=== PATIENT | male | born 1960 | race Caucasian/White ===

== ENCOUNTER → 2018-08-02 | Outpatient (CLI) | payer MEDICARE, OTHER ==
--- NOTE | 2018-08-02 17:02 | Diagnostic Imaging Report ---
INDICATION: Left shoulder pain, history of rotator cuff surgery. TECHNIQUE: AP, oblique, and transscapular views of the left shoulder were obtained. FINDINGS: No fracture or acute bony abnormality is seen. Benign-appearing lucency of the humeral head is probably a herniation pit. The glenohumeral joint and AC joint appear grossly unremarkable. IMPRESSION: No acute abnormality of the left shoulder. Dictated by: Dictated on workstation # [id number]
== END ==
LOC: RAD FS 13:40
PROVIDERS: ATTEND Nurse Practitioner
DX: M25.512 Pain in left shoulder (principal); Z98.890 Other specified postprocedural states
CPT/HCPCS: 73030

== ENCOUNTER → 2018-08-09 | Outpatient (CLI) | payer MEDICARE, OTHER ==
--- NOTE | 2018-08-09 22:57 | Diagnostic Imaging Report ---
PROCEDURE: MRI left upper extremity without contrast. TECHNIQUE: Multiplanar, multisequence non contrast-enhanced MRI of the left upper extremity was accomplished. INDICATION: Shoulder pain. COMPARISON: There are no prior MRI examinations available for comparison. The plain film examination of the left shoulder performed on 08/02/2018 failed to show any sign acute bony abnormality. FINDINGS: On The T2 fat-saturated coronal series of this exam, the central portion of the rotator cuff has been torn and this portion of the supraspinatus muscle has been retracted to the 11 o'clock position of the humeral head. There is also extensive abnormal signal throughout the remaining portion of the anterior third of the rotator cuff. This does suggest at least a partial tear. There is abnormal signal within the posterior third of the rotator cuff as well. This is more likely due to tendinosis, however. In addition to the tear of the rotator cuff, both the biceps tendon and the subscapularis tendon are torn. The biceps tendon is not visualized in its expected location of the bicipital groove on the axial images. Only a small portion of the tendon is seen coursing over the humeral head towards the biceps anchor. There is also diffusely abnormal signal throughout the fibers of the subscapularis tendon near its attachment to the humerus. I do suspect the subscapularis tendon is at least partially torn. The labrum is thinned superiorly and torn on a degenerative basis. There is also abnormal signal within the biceps anchor and I suspect there is a SLAP 2/3 tear as well. There is hypertrophy of the acromioclavicular joint and this does result in narrowing of the outlet for the supraspinatus muscle. There is also a small amount of fluid in the subacromial bursa. This does suggest that there is an element of bursitis present. A small joint effusion is also appreciated. There is no abnormal signal arising from the osseous structures to suggest bone edema or a fracture. There are 4 linear defects within the humeral head. Most likely these are related to prior screw placements. IMPRESSION: 1. The central portion of the rotator cuff has been completely torn with retraction of the supraspinatus muscle to the 11 o'clock position of the humerus. There is also an extensive partial tear of the remaining anterior third of the rotator cuff. 2. Both the biceps tendon and the subscapularis tendon are also torn. The labrum is torn as well and there may be a SLAP 2/3 tear of the biceps anchor. 3. There is hypertrophy of the acromioclavicular joint and this does result in the narrowing of the outlet of the supraspinatus muscle. 4. There is no acute bony abnormality appreciated. There are defects in the humeral head consistent with prior orthopedic fixation screws. Dictated by: Dictated on workstation # [id number]
== END ==
LOC: RAD 13:50
PROVIDERS: ATTEND Nurse Practitioner
DX: S46.212A Strain of muscle, fascia and tendon of other parts of biceps, left arm, initial encounter (principal); S43.492A Other sprain of left shoulder joint, initial encounter; M75.122 Complete rotator cuff tear or rupture of left shoulder, not specified as traumatic; Q89.9 Congenital malformation, unspecified; Z98.890 Other specified postprocedural states
CPT/HCPCS: 73221

== ENCOUNTER → 2018-12-23 | Outpatient (CLI) | payer MEDICARE, OTHER | LOC: LAB FS 10:01 | PROVIDERS: ATTEND Urology | DX: E29.1 Testicular hypofunction (principal) | CPT/HCPCS: 36415; 84402; 84403 ==

== ENCOUNTER → 2019-01-18 | Outpatient (CLI) | payer MEDICARE, OTHER ==
--- NOTE | 2019-01-18 11:06 | Diagnostic Imaging Report ---
EXAMINATION: Magnetic resonance imaging of the right shoulder without contrast. DATE: January 18, 2019 COMPARISON: None. HISTORY: 58-year-old male, right shoulder pain. TECHNIQUE: Magnetic Resonance Imaging sequences were performed of the shoulder without contrast. FINDINGS: ROTATOR CUFF, LIGAMENTS, TENDONS, AND MUSCLES: There is supraspinatus and infraspinatus tendinopathy. At the posterior margin of the supraspinatus tendon, there is a 3 mm wide approximately 75% partial bursal sided tear of supraspinatus. This tear measures 5 mm in medial to lateral dimension. The teres minor tendon is intact. There is subscapularis tendinopathy. There is normal rotator cuff muscle bulk and signal. LONG HEAD OF BICEPS: There is severe long head of biceps tendinopathy. The long head of biceps tendon is normally positioned in the bicipital groove. GLENOHUMERAL JOINT: The humeral head is well positioned relative to the glenoid. There is mild irregularity of the posterior labrum. There is low-level degenerative related edema in the posterior glenoid. There is no glenohumeral joint effusion. There is no discretely identified cartilage defect. There is no identified paralabral cyst. ACROMIOCLAVICULAR JOINT: The acromioclavicular joint is normally aligned. The coracoclavicular and coracoacromial ligaments are intact. There are severe acromioclavicular degenerative changes with osteophytes extending approximately 4 mm below the joint margin. BONE: There is no os acromiale. There is degenerative related marrow edema adjacent to the acromioclavicular joint. There is subcortical cystic change in the superior humeral head near the site of the supraspinatus tendon tear with a subcortical cyst measuring 8 x 8 x 6 mm in size. There is subcortical cystic change in the lesser tuberosity. There is no acute fracture, bone contusion, or evidence of osteonecrosis. BURSAE AND SOFT TISSUES: There is fluid in the subacromial subdeltoid bursa consistent with bursitis and/or recent injection. IMPRESSION: 1. The supraspinatus, infraspinatus, and subscapularis tendinopathy. 3 mm wide approximately 75% partial-thickness bursal sided tendon tear involving the posterior margin of the supraspinatus tendon with this tear measuring 5 mm in medial to lateral dimension. 2. Severe acromioclavicular degenerative changes with 4 mm undersurface osteophytes. 3. Mild glenohumeral osteoarthritis. 4. Severe long head of biceps tendinopathy. 5. Fluid in the subacromial subdeltoid bursa consistent with bursitis and/or recent injection. Dictated by: Dictated on workstation # [id number]
== END ==
LOC: RAD 08:00
PROVIDERS: ATTEND Nurse Practitioner
DX: M75.121 Complete rotator cuff tear or rupture of right shoulder, not specified as traumatic (principal); M75.91 Shoulder lesion, unspecified, right shoulder; M19.011 Primary osteoarthritis, right shoulder; M67.843 Other specified disorders of tendon, right hand
CPT/HCPCS: 73221

== ENCOUNTER → 2020-04-02 | Outpatient (CLI) | payer MEDICARE, OTHER ==
--- NOTE | 2020-04-02 10:56 | Diagnostic Imaging Report ---
INDICATION: Follow-up fracture. COMPARISON: None FINDINGS: 3 radiographic views of the left foot were obtained. There is oblique oriented fracture involving the lateral proximal margins of the 5th metatarsal. There is extension into the tarsometatarsal joint space and mild displacement of fracture fragments. There is no prior available for comparison. No other acute fracture or dislocation of the left foot is seen. Joint spaces are maintained. No unexpected radiopaque foreign bodies are identified. IMPRESSION: 1. Age-indeterminate avulsion-type fracture of the proximal 5th metatarsal. Dictated by: Dictated on workstation # [id number]
== END ==
LOC: RAD FS 10:18
PROVIDERS: ATTEND Nurse Practitioner
DX: S92.355D Nondisplaced fracture of fifth metatarsal bone, left foot, subsequent encounter for fracture with routine healing (principal); X58.XXXD Exposure to other specified factors, subsequent encounter
CPT/HCPCS: 73630

== ENCOUNTER → 2020-04-30 | Outpatient (CLI) | payer MEDICARE, OTHER ==
--- NOTE | 2020-04-30 09:45 | Diagnostic Imaging Report ---
Indication: Followup left foot fracture. Time of exam: 9:12 AM Correlation is made with prior foot radiograph from 04/02/2020. There appears to be a healing fracture of the proximal 5th metatarsal. Fracture lines have blurred but remain partially visible. Alignment is anatomic. Remaining metatarsals and phalanges are intact. Midfoot and hindfoot are unremarkable apart from posterior and plantar calcaneal spurs. Impression: Healing proximal 5th metatarsal fracture. Dictated by: Dictated on workstation # [id number]
== END ==
LOC: RAD FS 09:07
PROVIDERS: ATTEND Nurse Practitioner
DX: S92.355D Nondisplaced fracture of fifth metatarsal bone, left foot, subsequent encounter for fracture with routine healing (principal); X58.XXXD Exposure to other specified factors, subsequent encounter
CPT/HCPCS: 73630

== ENCOUNTER 2022-12-19 14:58 | Emergency (ER) | payer MEDICARE, OTHER ==
[~2022-12-19] VITALS: Ht 172 cm; Wt 93.0 kg
[2022-12-19 15:16] LABS: BASOPHILS % (AUTO) 1 % (0-10); EOSINOPHILS # (AUTO) 0.3 10^3/uL (0.0-0.3); EOSINOPHILS % (AUTO) 4 % (0-10); HEMATOCRIT 46 % (40-54); HEMOGLOBIN 15.3 g/dL (13.3-17.7); LYMPHOCYTES # (AUTO) 1.5 10^3/uL (1.0-4.0); LYMPHOCYTES % (AUTO) 22 % (12-44); MEAN CORPUSCULAR HEMOGLOBIN 36 pg (25-34); MEAN CORPUSCULAR HGB CONC 34 g/dL (32-36); MEAN CORPUSCULAR VOLUME 107 fL (80-99); MEAN PLATELET VOLUME 8.8 fL (9.0-12.2); MONOCYTES # (AUTO) 0.8 10^3/uL (0.0-1.0); MONOCYTES % (AUTO) 12 % (0-12); NEUTROPHILS # (AUTO) 4.3 10^3/uL (1.8-7.8); NEUTROPHILS % (AUTO) 61 % (42-75); PLATELET COUNT 156 10^3/uL (130-400)
--- NOTE | 2022-12-19 15:18 | ED Dyspnea ---
General Chief Complaint: Respiratory Problems Stated Complaint: SOB; CHEST CONGESTION Nursing Triage Note: Patient has presented to ER with cc of breath for the last 3 weeks. Today while eating lunch he felt short of breath, "felt funny", and tingling all over. He went to urgent care and EMS was called and patient brought to ER for evaluation. Source of Information: Patient, EMS History of Present Illness Date Seen by Provider: Dec 19, 2022 Time Seen by Provider: 14:51 Initial Comments 62-year-old male presenting with complaints of cough and shortness of breath for over 3 weeks. He states that first thing in the morning he will wake up and coughed up some green sputum. Today he had gone to lunch and the states that he felt short of breath and funny all over. He felt like his head was in a bucket. He states that when this is happened 1 time before he was told that he had a stroke approximately 15 years ago. He states other providers told him he did no t have a stroke. He denies having any changes in his vision, weakness or numbness in his arms or legs, difficulty swallowing, chest pain, headache, abdominal pain, nausea, vomiting. He denies any recent ill contacts but states that he has had some grandchildren that were sick. He had gone to urgent care and they had referred him to the emergency department and made him come by ambulance. He does have a history of atrial fibrillation that is rate controlled. He follows with LIO Chong through the [facility] clinic. Timing/Duration: Other (3 weeks of cough and shortness of breath) Severity: Mild Modifying Factors: Worse With Activity Associated Symptoms: Cough Allergies and Home Medications Allergies Coded Allergies: [id number] Reductase Inhibitor (Verified Allergy, Unknown, 12/19/22) aspirin (Verified Allergy, Unknown, 12/19/22) brompheniramine (Verified Allergy, Unknown, 12/19/22) dipyridamole (Verified Allergy, Unknown, 12/19/22) phenylpropanolamine (Verified Allergy, Unknown, 12/19/22) Patient Home Medication List Home Medication List Reviewed: Yes Albuterol Sulfate (Ventolin Hfa) 1 Puff Puff, 2 PUFF INH Q4H PRN for short of breath/cough Prescribed by: GERMAN LOPEZ on 12/19/22 1613 Review of Systems Review of Systems Constitutional: No chills, No diaphoresis, No fever, No weakness EENTM: nose congestion Respiratory: cough, phlegm (coughs up green sputum in am), short of breath; No stridor, No wheezing Cardiovascular: No chest pain, No edema, No palpitations Gastrointestinal: No abdominal pain, No loss of appetite, No nausea, No vomiting Genitourinary: No dysuria Musculoskeletal: no symptoms reported Skin: No rash Psychiatric/Neurological: Denies Headache, Denies Numbness, Denies Paresthesia Past Lqdnnoq-Fmwued-Kiztzh Hx Patient Social History Tobacco Use?: No Tobacco type used: Cigarettes Use of E-Cig and/or Vaping dev: No Substance use?: No Alcohol Use?: No Past Medical History Surgery/Hospitalization HX: Hypertension, Atrial fibrillation Physical Exam Vital Signs Vital Signs - First Documented 12/19/22 15:05 Pulse 78 Resp 20 B/P (MAP) 132/78 (96) Pulse Ox 95 O2 Delivery Room Air Capillary Refill : Height, Weight, BMI Height: '" Weight: lbs. oz. kg; 31.00 BMI Method: General Appearance: No Apparent Distress, WD/WN HEENT: PERRL/EOMI, Pharynx Normal Neck: Full Range of Motion, Normal Inspection, Non Tender, Supple Respiratory: Chest Non Tender, Lungs Clear, Normal Breath Sounds, No Accessory Muscle Use, No Respiratory Distress Cardiovascular: Normal Peripheral Pulses, Irregularly Irregular Gastrointestinal: Normal Bowel Sounds, No Pulsatile Mass, Non Tender, Soft Extremity: Normal Capillary Refill, Normal Inspection, No Pedal Edema Neurologic/Psychiatric: Alert, Oriented x3, No Motor/Sensory Deficits, Normal Mood/Affect, chief librarian branch or department II-XII Norm as Tested Skin: Normal Color, Warm/Dry Focused Exam Lactate Level 12/19/22 15:05: Lactic Acid Level 1.61 Lactic Acid Level Laboratory Tests Test 12/19/22 15:05 Lactic Acid Level 1.61 MMOL/L (0.50-2.00) Progress/Results/Core Measures Results/Orders Lab Results Laboratory Tests Test 12/19/22 15:05 12/19/22 15:10 Range/Units White Blood Count 7.0 4.3-11.0 10^3/uL Red Blood Count 4.27 L 4.30-5.52 10^6/uL Hemoglobin 15.3 13.3-17.7 g/dL Hematocrit 46 40-54 % Mean Corpuscular Volume 107 H 80-99 fL Mean Corpuscular Hemoglobin 36 H 25-34 pg Mean Corpuscular Hemoglobin Concent 34 32-36 g/dL Red Cell Distribution Width 14.3 10.0-14.5 % Platelet Count 156 130-400 10^3/uL Mean Platelet Volume 8.8 L 9.0-12.2 fL Immature Granulocyte % (Auto) 1 % Neutrophils (%) (Auto) 61 42-75 % Lymphocytes (%) (Auto) 22 12-44 % Monocytes (%) (Auto) 12 0-12 % Eosinophils (%) (Auto) 4 0-10 % Basophils (%) (Auto) 1 0-10 % Neutrophils # (Auto) 4.3 1.8-7.8 10^3/uL Lymphocytes # (Auto) 1.5 1.0-4.0 10^3/uL Monocytes # (Auto) 0.8 0.0-1.0 10^3/uL Eosinophils # (Auto) 0.3 0.0-0.3 10^3/uL Basophils # (Auto) 0.0 0.0-0.1 10^3/uL Immature Granulocyte # (Auto) 0.1 0.0-0.1 10^3/uL Prothrombin Time 13.3 12.2-14.7 SEC INR Comment 1.0 0.8-1.4 Activated Partial Thromboplast Time 25 24-35 SEC Sodium Level 141 135-145 MMOL/L Potassium Level 3.1 L 3.6-5.0 MMOL/L Chloride Level 100 98-107 MMOL/L Carbon Dioxide Level 30 21-32 MMOL/L Anion Gap 11 5-14 MMOL/L Blood Urea Nitrogen 19 H 7-18 MG/DL Creatinine 1.05 0.60-1.30 MG/DL Estimat Glomerular Filtration Rate 80 BUN/Creatinine Ratio 18 Glucose Level 99 70-105 MG/DL Lactic Acid Level 1.61 0.50-2.00 MMOL/L Calcium Level 9.7 8.5-10.1 MG/DL Corrected Calcium 9.5 8.5-10.1 MG/DL Magnesium Level 2.1 1.6-2.4 MG/DL Total Bilirubin 0.6 0.1-1.0 MG/DL Aspartate Amino Transf (AST/SGOT) < 5 L 5-34 U/L Alanine Aminotransferase (ALT/SGPT) < 5 0-55 U/L Alkaline Phosphatase 57 40-136 U/L Troponin I 0.30 <0.30 NG/ML C-Reactive Protein < 0.30 <0.50 MG/DL Pro-B-Type Natriuretic Peptide 2414.0 H <125.0 PG/ML Total Protein 6.8 6.4-8.2 GM/DL Albumin 4.2 3.2-4.5 GM/DL Influenza Type A (RT-PCR) Not Detected Not Detecte Influenza Type B (RT-PCR) Not Detected Not Detecte SARS-CoV-2 RNA (RT-PCR) Not Detected Not Detecte My Orders Orders - GERMAN LOPEZ MD Cbc And Automated Diff (12/19/22 15:10) Comprehensive Metabolic Panel (12/19/22 15:10) Blood Culture (12/19/22 15:10) Chest 1 View Ap/Pa Only (12/19/22 15:10) Magnesium (12/19/22 15:10) Ekg Tracing (12/19/22 15:10) O2 (12/19/22 15:10) Ed Iv/Invasive Line Start (12/19/22 15:10) Monitor-Rhythm Ecg Trace Only (12/19/22 15:10) Crp Fs (12/19/22 15:10) Lactic Acid Analyzer (12/19/22 15:10) Troponin I Fs (12/19/22 15:10) Probnp Fs (12/19/22 15:10) Covid 19 Inhouse Test (12/19/22 15:10) Ct Head Wo (12/19/22 15:10) Influenza A And B By Pcr (12/19/22 15:10) Protime With Inr (12/19/22 15:10) Partial Thromboplastin Time (12/19/22 15:10) Vital Signs/I&O 12/19/22 12/19/22 15:05 16:12 Pulse 78 72 Resp 20 14 B/P (MAP) 132/78 (96) 119/66 Pulse Ox 95 95 O2 Delivery Room Air Room Air Blood Pressure Mean: 96 Progress Progress Note #1: Progress Note Differential diagnosis includes pneumonia, COVID, influenza, sinusitis, viral syndrome. Peripheral IV established by EMS. Draw labs for complete blood count, comprehensive metabolic profile, blood cultures, lactic acid, CRP, coagulation factors, troponin, proBNP, magnesium. CT scan of the head without contrast for his complaint of feeling like his head was in a bucket at lunch. He already takes Eliquis as a blood thinner for his atrial fibrillation. He states that his shortness of breath has been going on for over 3 weeks. We will obtain a swab to check for COVID and influenza. 1 view chest x-ray to look for signs of infiltrate or effusion. His oxygen saturation was 96 to 98% on room air during my exam. Blood pressure was 132/78. Heart rate is in the 70s and irregular. Placed on cardiac reserve operator and my initial interpretation was atrial fibrillation with rate controlled in the 70s. Obtain electrocardiogram to look for signs of acute ischemia. Progress Note #2: Time: 15:28 Progress Note My personal interpretation and review of the 1 view chest x-ray does look like h e has some increased perihilar lung markings but I did not see any acute definite infiltrate. On my personal interpretation and review of the CT head without contrast I did not appreciate any acute intracranial hemorrhage or mass. Complete blood count had a normal white blood cell count of 7. He was not anemic with a hemoglobin of 15.3. His coagulation factors showed a normal pro time of 13.3 with an INR of 1 and his PTT was normal at 25. Progress Note #3: Time: 16:00 Progress Note Reviewed lab results and findings with the patient and family. His blood pressure and oxygen saturation continued to be normal here in the ED. CT scan of the head did not show any acute process and there was no acute infiltrate or effusion on his 1 view chest x-ray. His swab for COVID and influenza were both negative. His troponin was negative at less than 0.3. He did have slight elevation of his proBNP to 2414 but did not have prior tests for comparison or signs of CHF on chest xray or exam. Will try albuterol inhaler with spacer for his cough as he reports that has helped in the past when he has had bronchitis. Initial ECG Impression Date: Dec 19, 2022 Initial ECG Impression Time: 15:02 Initial ECG Rate: 73 Initial ECG Rhythm: A Fib/Flutter Initial ECG Comparisson: No Previous ECG Available Comment On my initial interpretation and review his electrocardiogram shows atrial fibrillation with rate control 73 bpm. Low QRS voltage in the precordial leads. Global T wave flattening. No acute ST elevation. QT interval 333 ms with a QTc interval 359 ms. There is no prior tracing available for comparison. Diagnostic Imaging Diagonstic Imaging: CT Plain Films/CT/US/NM/MRI: head Comments [facility] [place] NAME: [facility] REC#: [id number] PT STATUS: REG ER : 1960 PHYSICIAN: GERMAN LOPEZ MD ADMIT DATE: 12/19/22/ER FS Signed Date of Exam:12/19/22 CT HEAD WO PROCEDURE: CT head without contrast. TECHNIQUE: Multiple contiguous axial images were obtained through the brain without the use of intravenous contrast. Auto Exposure Controls were utilized during the CT exam to meet ALARA standards for radiation dose reduction. INDICATION: Head congestion. No prior studies are available for comparison. The ventricles and sulci are within normal limits. No sulcal effacement or midline shift is identified. No acute intra-axial or extra-axial hemorrhage is detected. Cisterns are patent. Visualized paranasal sinuses are clear. IMPRESSION: No acute intracranial process is detected. Dictated by: Dictated on workstation # [id number] Dict: 12/19/22 1531 Trans: 12/19/22 1538 [facility] [id number] Interpreted by: ANTONIO IRENE MD Electronically signed by: ANTONIO IRENE MD 12/19/22 1538 Reviewed: Reviewed by [place] Diagonstic Imaging: Xray Plain Films/CT/US/NM/MRI: chest Comments [facility] [place] NAME: [facility] REC#: [id number] PT STATUS: DEP ER : 1960 PHYSICIAN: GERMAN LOPEZ MD ADMIT DATE: 12/19/22/ER FS Signed Date of Exam:12/19/22 CHEST 1 VIEW AP/PA ONLY CLINICAL INDICATION: Patient with congestion and shortness of breath. EXAM: Portable chest x-ray, upright view. COMPARISON: None. FINDINGS: Lungs/pleura: Lungs are clear. There is no pneumothorax. There is no pleural effusion. Mediastinum: Unremarkable. Pulmonary vasculature: Unremarkable. Heart: Unremarkable. Bones/extrathoracic soft tissue: Unremarkable. IMPRESSION: There is no radiographic evidence of acute cardiopulmonary process. Dictated by: Dictated on workstation # [id number] Dict: 12/19/22 1533 Trans: 12/19/221745 [id number] Interpreted by: TRUNG VALDEZ MD Electronically signed by: TRUNG VALDEZ MD 12/19/22 174 Reviewed: Reviewed by Me Departure Impression Primary Impression: Shortness of breath Additional Impression: Upper respiratory infection with cough and congestion Disposition: HOME, SELF-CARE Condition: Stable Departure-Patient Inst. Decision time for Depature: 16:11 Referrals: [facility] [place] (PCP/Family) Primary Care Physician Patient Instructions: Cough, Adult ED, How to Use a Metered Dose Inhaler ED, How to Use a Spacer, Shortness of Breath, Adult ED, Upper Respiratory Infection ED Add. Discharge Instructions: Stay well-hydrated and drink plenty of fluids. Continue on your home medications. Consider taking some Mucinex to help with congestion and cough. Check back with your primary care provider for continued symptoms and concerns Try using the albuterol inhaler with spacer 2 puffs every 4 to 6 hours as needed for cough and shortness of breath. Check back with your Accounts Payable Lead about your proBNP being elevated to 2,414. All discharge instructions reviewed with patient and/or family. Voiced u nderstanding. Scripts Albuterol Sulfate (VENTOLIN HFA) 1 Puff Puff 2 PUFF INH Q4H PRN for short of breath/cough for 30 Days, #1 EA 0 Refills 1 PUFF = 90 MCG Prov: GERMAN LOPEZ MD 12/19/22 GERMAN LOPEZ MD Dec 19, 2022 15:18
[2022-12-19 15:29] LABS: PROTHROMBIN TIME PATIENT 13.3 SEC (12.2-14.7)
--- NOTE | 2022-12-19 15:34 | Diagnostic Imaging Report ---
PROCEDURE: CT head without contrast. TECHNIQUE: Multiple contiguous axial images were obtained through the brain without the use of intravenous contrast. Auto Exposure Controls were utilized during the CT exam to meet ALARA standards for radiation dose reduction. INDICATION: Head congestion. No prior studies are available for comparison. The ventricles and sulci are within normal limits. No sulcal effacement or midline shift is identified. No acute intra-axial or extra-axial hemorrhage is detected. Cisterns are patent. Visualized paranasal sinuses are clear. IMPRESSION: No acute intracranial process is detected. Dictated by: Dictated on workstation # [id number]
--- NOTE | 2022-12-19 15:35 | Diagnostic Imaging Report ---
CLINICAL INDICATION: Patient with congestion and shortness of breath. EXAM: Portable chest x-ray, upright view. COMPARISON: None. FINDINGS: Lungs/pleura: Lungs are clear. There is no pneumothorax. There is no pleural effusion. Mediastinum: Unremarkable. Pulmonary vasculature: Unremarkable. Heart: Unremarkable. Bones/extrathoracic soft tissue: Unremarkable. IMPRESSION: There is no radiographic evidence of acute cardiopulmonary process. Dictated by: Dictated on workstation # [id number]
[2022-12-19 15:40] LABS: BILIRUBIN,TOTAL 0.6 MG/DL (0.1-1.0); CALCIUM 9.7 MG/DL (8.5-10.1); CHLORIDE 100 MMOL/L (98-107); MAGNESIUM 2.1 MG/DL (1.6-2.4); POTASSIUM 3.1 MMOL/L (3.6-5.0); SODIUM 141 MMOL/L (135-145)
[2022-12-19 15:47] LABS: ALBUMIN 4.2 GM/DL (3.2-4.5); ALKALINE PHOSPHATASE 57 U/L (40-136); BUN/CREATININE RATIO 18; CARBON DIOXIDE 30 MMOL/L (21-32); CREATININE SERUM 1.05 MG/DL (0.60-1.30); GFR ESTIMATED 80; GLUCOSE 99 MG/DL (70-105); TOTAL PROTEIN 6.8 GM/DL (6.4-8.2)
[2022-12-19 16:08] LABS: ALANINE AMINOTRANSFERASE < 5 U/L (0-55)
[2022-12-19 16:12] VITALS: BP 119/66
[2022-12-19] MEDS ORDERED: RT-ALBUINH INH (16:13)
== END 2022-12-19 16:15 | disposition home or self-care (01) ==
LOC: EDUNIT# 14:58 → ER FS 14:59
DX: J06.9 Acute upper respiratory infection, unspecified (principal); I48.91 Unspecified atrial fibrillation; F17.210 Nicotine dependence, cigarettes, uncomplicated; Z79.01 Long term (current) use of anticoagulants; Z20.822 Contact with and (suspected) exposure to COVID-19
CPT/HCPCS: 36415; 70450; 71045; 80053; 83605; 83735; 83880; 84484; 85025; 85610; 85730; 86141; 87040; 87636; 93005; 93041